=== PATIENT | male | born 1950 | race Caucasian/White ===

== ENCOUNTER 2017-05-31 11:00 | Outpatient (RCR) | payer MEDICARE, SELFPAY | END 2017-06-05 15:40 | disposition home or self-care (01) | LOC: PT 11:00 | PROVIDERS: Visit Provider Family Medicine | DX: M25.519 Pain in unspecified shoulder (principal) | CPT/HCPCS: 97033; 97035; 97110; 97140; 97163 ==

== ENCOUNTER → 2017-11-15 15:43 | Outpatient (CLI) | payer MEDICARE, SELFPAY ==
--- NOTE | 2017-11-15 15:49 | CT_ITS ---
CT abdomen pelvis wo con INDICATION: Right flank pains. St pain. Hematuria. Low back acute In the flank year ITS.REASON: LOW BACK PAIN,HEMATURIA ORDERING PHYSICIAN: Stephanie Antoine PATIENT AGE: 67 years COMPARISON: None available PROCEDURE: Oral Contrast: None IV Contrast: TECHNIQUE: Axial images are obtained without contrast. Sagittal and coronal reformatted images are reviewed as well. All CT scans at the facility use one or more dose reduction, viz: automated exposure control; ma/kV adjustment per patient size (including targeted exams where dose is matched to indication; i.e. head); or iterative reconstruction technique. FINDINGS : Lung base. No acute findings. No active disease. Calcified granulomata medial right lung base. Abdomen/pelvis the lack of oral and IV contrast is somewhat decreased sensitivity. Liver. Multiple low-density areas of liver. These all measure near fluid density and thus most likely scattered benign cysts. Largest measuring 2 cm diameter. Others measure less.. Any old outside studies would be helpful to confirm stability. If none available consider ultrasound or a CT with contrast follow-ups, liver protocol. No intrahepatic biliary ductal dilatation Spleen not enlarged appears relatively small in size. Question some vague lower density towards its lateral aspect of this is equivocal. Area of splenosis just medial to the spleen however stomach axial image 28. Pancreas unremarkable on this This slightly limited noncontrast study through the pancreas... Adrenals unremarkable. Gallbladder. No calcified stones no biliary ductal dilatation TRACT LEFT left kidney. No hydronephrosis. 4.4 mm nonobstructive calculus at the periphery of the upper left kidney. There is also a likely peripelvic cyst upper pole left kidney measuring 18 mm, sagittal slice 72. Left ureter unremarkable RIGHT KIDNEY no hydronephrosis. No calculi. Stable 1 cm cyst lateral aspect mid right kidney. Right ureter unremarkable. Pelvis. Bladder unremarkable. No calculi. Streak artifact from the metallic right hip prosthesis diminishes resolution at pelvis and lower pelvis. GI TRACT. Generous stool throughout the rectosigmoid and entire colon. Suggesting mild constipation. Diverticuli throughout the sigmoid and left colon but no diverticulitis evident. The appendix is identified and appears normal at the left lower quadrant. Small bowel loops contain generous fluid at and gas with moderate air-fluid levels. Findings are suspect for a mild ileus or early enteritis. On further investigation I would note that there is a dilated 3.5 cm fluid in small bowel left upper quadrant cannot totally exclude early obstruction with this larger bowel loop. If symptoms progress consider follow-up for such Stomach. Generous wall thickness may merely reflect lack of distention The patient has a aortobiiliac endograft of some form. Nonradiopaque. 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 The MANDY calcified leads to this region at lower aorta. No free fluid. No free air . Osseous. Multilevel degenerative changes spine with generous facet arthropathy lower L-spine. Levoscoliosis upper L-spine dextrocurvature lower L-spine. No osseous lesions. Righ total t hip replacement IMPRESSION 1. Regarding Right sided pain.:. Appendix is normal. No urinary tract obstruction. 2.Increase stool throughout the colon reflecting mild to moderate constipation. Most prominent stool is seen at the right in transverse colon. 3. Generous to slightly dilated small bowel loops, with moderate air-fluid levels. Increased gas & fluid small bowel Mildly dilated loops most evident the left upp
[2017-11-15 16:34] LABS: Basophils % 0.3 % (0.1-2.0); Eosinophils # 0.2 K/mm3 (0.0-0.4); Eosinophils % 1.8 % (0.1-12.0); Hematocrit 37.5 % (42.0-52.0); Hemoglobin 12.2 g/dL (14.1-18.0); Lymphocytes # 1.3 K/mm3 (0.7-4.5); Lymphocytes % 14.7 K/mm3 (10-50); Mean Corpuscular HGB Conc 32.6 g/dL (31.8-35.4); Mean Corpuscular Hemoglobin 28.8 pg (27.0-31.2); Mean Corpuscular Volume 88.4 fl (80-94); Mean Platelet Volume 7.7 fl (7.4-10.4); Monocytes # 0.8 K/mm3 (0.1-1.0); Monocytes % 8.8 % (1.7-9.3); Neutrophils # 6.4 K/mm3 (1.8-7.8); Neutrophils % 74.4 % (37.0-80.0); Platelet Count 220 K/mm3 (142-424); Red Blood Count 4.24 M/mm3 (4.60-6.20); Red Cell Distribution Width 14.8 % (11.5-17.5); White Blood Count 8.5 K/mm3 (4.8-10.8)
[2017-11-15 17:19] LABS: Alanine Aminotransferase 23 U/L (12-78); Albumin Level 3.3 gm/dL (3.4-5.0); Alkaline Phosphatase 85 U/L (46-116); Anion Gap 12.4 mEq/L (5-15); Aspartate Amino Transferase 15 U/L (15-37); Bilirubin,Total 0.6 mg/dL (0.2-1.0); Blood Urea Nitrogen 23 mg/dL (7-18); Calcium 8.9 mg/dL (8.5-10.1); Carbon Dioxide 26 mmol/L (21.0-32.0); Chloride 105 mmol/L (98-107); Creatinine,Serum 1.15 mg/dL (0.70-1.30); Estimated Glomerular Filt Rate 63 ml/min (>60); GFR (African American) 76 ML/MIN (>60); Globulin 3.2 gm/dl (1.3-3.2); Glucose 96 mg/dL (74-106); Potassium 4.4 mmoL/L (3.5-5.1); Sodium 139 mmol/L (136-145); Total Protein,Serum 6.5 gm/dL (6.4-8.2)
== END ==
PROVIDERS: PCP Internal Medicine Adolescent Medicine; Visit Provider Nurse Practitioner Family
DX: M54.5 Low back pain (principal); R31.29 Other microscopic hematuria
CPT/HCPCS: 36415; 74176; 80053; 85025

== ENCOUNTER → 2017-11-24 07:36 | Outpatient (CLI) | payer MEDICARE, SELFPAY ==
--- NOTE | 2017-11-24 07:39 | US_ITS ---
US liver HISTORY: Follow-up liver cysts, right-sided pain ITS.REASON: LIVER CYST ORDERING PHYSICIAN: Stephanie Antoine PATIENT AGE: 67 years COMPARISON: None FINDINGS: PANCREAS:Not imaged LIVER:Multiple cystic lesions are present within the liver including a 1 cm cyst in the left hepatic lobe superiorly and 1.6 cm cyst in the right hepatic lobe superiorly as well as a 1.6 cm and 1.3 cyst in the periportal region. No biliary dilatation evident. There is appropriate portal and hepatic blood flow. No biliary dilatation. RIGHT KIDNEY:3 cm lower pole renal cyst. No hydronephrosis Gallbladder is not imaged. IMPRESSION: Multiple hepatic cysts. No suspicious solid lesions evident of the liver. 3 cm right renal cyst
== END ==
PROVIDERS: PCP Internal Medicine Adolescent Medicine; Visit Provider Nurse Practitioner Family
DX: K76.89 Other specified diseases of liver (principal)
CPT/HCPCS: 76705

== ENCOUNTER 2019-04-15 14:20 | Outpatient (RCR) | payer MEDICARE, SELFPAY | END 2019-04-23 09:26 | disposition home or self-care (01) | LOC: PT.CARL 14:20 | PROVIDERS: PCP Internal Medicine Adolescent Medicine; Visit Provider Nurse Practitioner Family | DX: M25.511 Pain in right shoulder (principal) | CPT/HCPCS: 97014; 97033; 97110; 97163; G0283 ==

== ENCOUNTER 2019-08-30 16:44 | Emergency (ER) | payer MEDICARE, SELFPAY ==
[2019-08-30] VITALS (11 sets, daily range): BP systolic 104–161; BP diastolic 62–80; PULSE 55–72; RESP 16–30; TEMP 36.5–36.7; O2SAT 85–100; BMI 29.1
--- NOTE | 2019-08-30 16:24 | ECG_ITS ---
APPROVED REPORT Exam: Resting ECG HR:61 bpm ECG Measurements Heart Rate 61 AXES DE 242 P 68 QRSd 164 QRS -74 QT 530 T -1 QTc 533 <Conclusion> Sinus rhythm with 1st degree AV block with premature ventricular complexes Possible Left atrial enlargement Right bundle branch block Left anterior fascicular block Bifascicular block Left ventricular hypertrophy Abnormal ECG Electronically signed by : Luis Garcia, 08/31/2019 22:26:43
--- NOTE | 2019-08-30 16:44 | XR_ITS ---
PROCEDURE: XR CHEST PORTABLE CLINICAL HISTORY: intubation Shortness of air, respiratory failure COMPARISON: CXR CHEST(2 VIEWS-NOT PORTABLE) from 12/28/2012 FINDINGS: 1647 hours. Endotracheal tube tip is in good position well above the isabella at the T4 level nearly 6 cm above the isabella There is mild cardiomegaly. There has been a prior median sternotomy with mitral valve replacement . The lungs are clear No acute bony abnormalities. IMPRESSION: Endotracheal tube in good position Dictated by: Júnior Blanchard MD 08/30/2019 17:39 Electronically signed by Júnior Blanchard MD in [place] 08/30/2019 17:39
[2019-08-30 16:55] LABS: Basophils % 0.3 % (0.1-2.0); Eosinophils # 0.2 K/mm3 (0.0-0.4); Eosinophils % 1.7 % (0.1-12.0); Hematocrit 35.2 % (42.0-52.0); Hemoglobin 11.4 g/dL (14.1-18.0); Lymphocytes # 1.6 K/mm3 (0.7-4.5); Lymphocytes % 13.3 % (10-50); Mean Corpuscular HGB Conc 32.5 g/dL (31.8-35.4); Mean Corpuscular Hemoglobin 29.4 pg (27.0-31.2); Mean Corpuscular Volume 90.6 fl (80-94); Mean Platelet Volume 7.6 fl (7.4-10.4); Monocytes % 8.2 % (1.7-9.3); Neutrophils % 76.5 % (37.0-80.0); Platelet Count 254 K/mm3 (142-424); Red Blood Count 3.88 M/mm3 (4.60-6.20); Red Cell Distribution Width 13.9 % (11.5-17.5); White Blood Count 11.8 K/mm3 (4.8-10.8)
[2019-08-30 17:02] LABS: Alanine Aminotransferase 14 U/L (12-78); Albumin Level 3.9 g/dl (3.5-5.0); Albumin/Globulin Ratio 1.4 (1.1-1.8); Alkaline Phosphatase 83 U/L (38-126); Anion Gap 7.8 mEq/L (5-15); Aspartate Amino Transferase 24 U/L (17-59); Bilirubin,Total 0.5 mg/dl (0.2-1.3); Blood Urea Nitrogen 18 mg/dl (9-20); Calcium 9.3 mg/dl (8.4-10.2); Carbon Dioxide 23 mmol/L (22.0-30.0); Chloride 105 mmol/L (98-107); Creatinine Clearance Estimated 93 mL/min (50-200); Estimated Glomerular Filt Rate 111 ml/min (>60); GFR (African American) 135 ML/MIN (>60); Globulin 2.7 g/dL (1.3-3.2); Glucose 120 mg/dl (74-100); Potassium 3.8 mmoL/L (3.5-5.1); Sodium 132 mmol/L (136-145); Total Protein,Serum 6.6 g/dl (6.3-8.2)
--- NOTE | 2019-08-30 17:03 | CT_ITS ---
PROCEDURE: CT ABDOMEN PELVIS WO CON CLINICAL INDICATION: shortness of breath History of aneurysm, evaluate for aneurysm, pain COMPARISON: [facility] CT abdomen pelvis wo con from 11/15/2017 TECHNIQUE: Axial images obtained with sagittal and coronal reformats. All CT scans at the facility use one or more dose reduction, viz: automated exposure control, ma/kV adjustment per patient size (including targeted exams where dose is matched to indication, i.e. head), or iterative reconstruction technique. FINDINGS: Artifact is present from the patient's arm. Scattered hypodensities are present in the liver and may be due to cysts. There is a moderate amount of retained colonic feces. There are bilateral renal cyst. There is a 5 mm nonobstructing stone in the upper pole of the left kidney. The spleen and pancreas have an unremarkable appearance.. There is a solid-appearing 2.7 cm nodule posterior to the fundus of the stomach. This appears separate from the left adrenal gland. The right adrenal gland has an unremarkable appearance. No intestinal obstruction or free air. There is colonic diverticulosis but no evidence of diverticulitis. No evidence of appendicitis. Prior aorto bi-iliac stent graft. There are degenerative changes of the lumbar spine SI joints and left hip. There has been a prior right jonatan arthroplasty of the hip. Multiple unopacified bowel loops in the abdomen or pelvis which could obscure or mimic pathology. If symptoms persist, consider repeat exam with IV and oral contrast.. Soliz catheter is present. IMPRESSION: 1. No definite acute finding. 2. Diverticulosis with constipation. 3. Left renal nephrolithiasis with bilateral renal cysts and hepatic cysts 4. Multiple unopacified bowel loops in the abdomen or pelvis which could obscure or mimic pathology. If symptoms persist, consider repeat exam with IV and oral contrast. Dictated by: Júnior Blanchard MD 08/30/2019 21:09 Electronically signed by Júnior Blanchard MD in [facility] 08/30/2019 21:09
--- NOTE | 2019-08-30 17:03 | CT_ITS ---
PROCEDURE: CT CHEST WO CON CLINICAL INDICATION: shortness of breath Shortness of breath, history of aneurysm, heart disease COMPARISON: CT ABDOMEN PELVIS WO CON from 08/30/2019 TECHNIQUE: Axial images obtained with sagittal and coronal reformats. All CT scans at the facility use one or more dose reduction, viz: automated exposure control, ma/kV adjustment per patient size (including targeted exams where dose is matched to indication, i.e. head), or iterative reconstruction technique. FINDINGS: There is an endotracheal tube present. The tip is in good position well above the isabella 5 cm above the isabella. There has been a prior CABG. The heart size is normal. There has been prior aortic valve repair and there are coronary artery stents and or calcifications. There has been prior mitral valve replacement as well. There are moderate atelectatic changes in both lower lobes posteriorly. IMPRESSION: 1. Endotracheal tube in good position. 2. Prior aortic valve and mitral valve replacement. 3. Bilateral lower lobe atelectatic change Dictated by: Júnior Blanchard MD 08/30/2019 20:57 Electronically signed by Júnior Blanchard MD in [facility] 08/30/2019 20:57
--- NOTE | 2019-08-30 17:06 | PC.NURSE ---
Patient arrived via ems at 1618. Patient visibly having difficultly breathing. Unable to answer questions related to shortness of breath. Is alert. propofol 50mg give iv push Drip started at 3ml/hr. 75mg of Succ given at 1636, 25mg of Succ given at 1637. Patient intubated at 1639 #8 ET tube 24 at the lip.
--- NOTE | 2019-08-30 17:10 | PC.NURSE ---
Propofol increased to 36ml/hr at 1700
--- NOTE | 2019-08-30 17:11 | CT_ITS ---
PROCEDURE: CT HEAD/BRAIN WO CON CLINICAL INDICATION: ams Altered mental status, altered level of consciousness, confusion, disorientation COMPARISON: [facility] CT HEAD W/O CONTRAST from 11/27/2016 TECHNIQUE: Axial images obtained. All CT scans at the facility use one or more dose reduction, viz: automated exposure control, ma/kV adjustment per patient size (including targeted exams where dose is matched to indication, i.e. head), or iterative reconstruction technique. FINDINGS: No midline shift, mass effect, intracranial hemorrhage, hydrocephalus, or extra-axial fluid collection is evident. There is generalized atrophy with hypoattenuation of the periventricular white matter consistent with microangiopathic changes. The calvarium has an unremarkable appearance. No mastoid effusion. There is mucosal thickening of the ethmoid sinuses IMPRESSION: No acute intracranial finding Dictated by: Júnior Blanchard MD 08/30/2019 17:45 Electronically signed by Júnior Blanchard MD in [facility] 08/30/2019 17:45
[2019-08-30 17:16] LABS: ABG Base Excess -6.8 mmol/L (-2.4-2.3); ABG HCO3 20.4 mmhg (22.0-26.0); ABG Oxygen Saturation 99 % (90-100); ABG PCO2 47.7 mmhg (35.0-45.0); ABG PH 7.25 mmol/L (7.35-7.45); ABG PO2 494.2 mmhg (80-100); ABG TCO2 21.9 mmhg (23-27); Allen's Test ACCEPTABLE; Oxygen 100% %; PEEP 5; Tidal Volume 450; Vent Rate 18
[2019-08-30 17:17] LABS: Microscopic, Urine URINE MICROSCOPIC (MICROSCOPIC)
[2019-08-30 17:17] LABS: Source Right Radial
--- NOTE | 2019-08-30 17:18 | PC.NURSE ---
Spoke with Jose Enrique from pharmacy about dosing for versed drip. repeated back how to mix and starting rate. Will mix 25mML and start at 1.9ml/hr if needed
[2019-08-30 17:23] LABS: Appearance,Urine CLEAR (Clear); Bilirubin,Urine Negative (Negative); Blood, Urine Negative (Negative); Color,Urine YELLOW (Yellow); Glucose,Urine (UA) Negative (Negative); Ketones,Urine TRACE (Negative); Leukocyte Esterase,Urine Negative (Negative); Nitrate,Urine Negative (Negative); Protein,Urine Negative (Negative); Urobilinogen,Urine 0.2 EU/dl (0.2)
--- NOTE | 2019-08-30 17:28 | PC.NURSE ---
PT GOING TO [facility]. Felipa MELO RN ACCOMPANYING PT
--- NOTE | 2019-08-30 18:33 | HMH.EDGENADL ---
ED Disposition Clinical Impression: Respiratory failure, Bilateral pneumonia Disposition: er Short-Term Hosp Condition on Discharge: Serious Referrals: Ilda Larry [Primary Care Provider] - Forms: Transfer Record - ED - Critical Care Critical Care Time: Yes Attestation: On 08/30/19, the high probability of a clinically significant, sudden or life threatening deterioration of the following system(s) required my full and direct attention, intervention and personal management. The time I documented below is in addition to time spent performing reported procedures but includes the following listed in this critical care notation. Total Critical Care Time: 55 Vital system(s) involved:: Circulatory Failure, Metabolic Failure, Respiratory Failure, Renal Failure, Shock (Septic) My critical care processes included: Assessment & monitoring of V/S, Initial and Re-exams, Data Review/Interpretation, Coordinating Care, Medication Orders and management, Documentation Medical Decision Making - Medical Records Medical records reviewed: Yes: I reviewed the patient's medical records. - Antonio Inquiry Pt receiving controlled substance: No Vital Signs: 08/30/19 16:43 08/30/19 17:00 08/30/19 17:13 Temperature 97.7 F Temperature Source Oral Pulse Rate [Radial] 67 67 Respiratory Rate 30 H Blood Pressure [Right Arm] 136/79 129/70 Blood Pressure Mean [Right Arm] 98 89 Blood Pressure Source [Right Arm] Automatic Cuff Automatic Cuff Blood Pressure Position [Right Arm] Supine Supine 02 Sat by Pulse Oximetry 100 100 100 Oxygen Delivery Method Mechanical Ventilation Mechanical Ventilation 08/30/19 17:30 08/30/19 18:00 08/30/19 18:30 Temperature Temperature Source Pulse Rate [Radial] 63 57 L 61 Respiratory Rate 16 16 18 Blood Pressure [Right Arm] 104/70 L 104/69 L 109/70 L Blood Pressure Mean [Right Arm] 81 80 83 Blood Pressure Source [Right Arm] Automatic Cuff Automatic Cuff Automatic Cuff Blood Pressure Position [Right Arm] Supine Supine Supine 02 Sat by Pulse Oximetry 100 100 99 Oxygen Delivery Method Mechanical Ventilation Mechanical Ventilation Mechanical Ventilation 08/30/19 19:05 Temperature Temperature Source Pulse Rate [Radial] 63 Respiratory Rate 18 Blood Pressure [Right Arm] 109/74 L Blood Pressure Mean [Right Arm] 85 Blood Pressure Source [Right Arm] Automatic Cuff Blood Pressure Position [Right Arm] Sitting 02 Sat by Pulse Oximetry 98 Oxygen Delivery Method - Lab Data Lab results reviewed: Yes: I reviewed the patient's lab results. Lab Results 08/30/19 16:44: WBC 11.8 H, RBC 3.88 L, Hgb 11.4 L, Hct 35.2 L, MCV 90.6, MCH 29.4, MCHC 32.5, RDW 13.9, Plt Count 254, MPV 7.6, Neut % (Auto) 76.5, Lymph % (Auto) 13.3, Wetzel % (Auto) 8.2, Eos % (Auto) 1.7, Baso % (Auto) 0.3, Neut # (Auto) 9.0 H, Lymph # (Auto) 1.6, Wetzel # (Auto) 1.0, Eos # (Auto) 0.2, Baso # (Auto) 0.0 08/30/19 16:44: Sodium 132 L, Potassium 3.8, Chloride 105, Carbon Dioxide 23, Anion Gap 7.8, BUN 18, Creatinine 0.70, Estimated Creat Clear 93, Estimated GFR 111, Est GFR ( Amer) 135, Glucose 120 H, Calcium 9.3, Total Bilirubin 0.5, AST 24, ALT 14, Alkaline Phosphatase 83, Total Protein 6.6, Albumin 3.9, Globulin 2.7, Albumin/Globulin Ratio 1.4 08/30/19 16:44: Troponin I < 0.01 08/30/19 16:58: Urine Color Yellow, Urine Appearance Clear, Urine pH 6.0, Ur Specific [place] 1.020, Urine Protein Negative, Urine Glucose (UA) Negative, Urine Ketones Trace, Urine Blood Negative, Urine Nitrate Negative, Urine Bilirubin Negative, Urine Urobilinogen 0.2, Ur Leukocyte Esterase Negative, Urine WBC 3-5 08/30/19 17:13: Specimen Source Right radial, O2 % 100%, ABG pH 7.25 L, ABG pCO2 47.7 H, ABG pO2 494.2 H, ABG HCO3 20.4 L, ABG Total CO2 21.9 L, ABG O2 Saturation 99, ABG Base Excess -6.8 L, Júnior Test Acceptable, Vent Rate 18, Tidal Volume 450, PEEP 5 08/30/19 19:00: Lactate < 0.5 L Result diagrams: 08/30/19 16:44 08/30/19 16:44 Orders
--- NOTE | 2019-08-30 18:37 | PC.NURSE ---
CALLING [facility] PER FAMILY REQUEST , THEY DO HAVE AN ICU BED , DR SUSAN HILL WILL BE CALLING BACK
[2019-08-30 18:54] LABS: Troponin I < 0.01 ng/ml (0.00-0.034)
[2019-08-30 19:10] LABS: Lactic Acid < 0.5 mmol/L (0.7-2.1)
--- NOTE | 2019-08-30 20:43 | PC.NURSE ---
[employer] at bedside and report given to flight crew by lloyd wayne rn.
[2019-09-13 09:46] LABS: POC Glucose,Bedside 128 (70-110)
== END 2019-08-30 21:22 | disposition short-term general hospital (02) ==
PROVIDERS: Emergency Provider Family Medicine; PCP Nurse Practitioner Family
DX: J96.90 Respiratory failure, unspecified, unspecified whether with hypoxia or hypercapnia (principal); J18.9 Pneumonia, unspecified organism
CPT/HCPCS: 31500; 36415; 70450; 71045; 71250; 74176; 80053; 81001; 82803; 82962; 83605; 84484; 85025; 87040; 87070; 87205; 93005; 96365; 96367; 96375; 99285; J0330; J1956; J2704

== ENCOUNTER → 2020-01-13 13:56 | Outpatient (POV) | payer MEDICARE, SELFPAY | PROVIDERS: Visit Provider Nurse Practitioner Family | DX: Z00.00 Encounter for general adult medical examination without abnormal findings (principal) ==

== ENCOUNTER → 2020-03-23 10:15 | Outpatient (CLI) | payer MEDICARE, SELFPAY ==
[2020-03-23 10:26] LABS: Microscopic, Urine URINE MICROSCOPIC (MICROSCOPIC)
--- NOTE | 2020-03-23 10:44 | ECG_ITS ---
APPROVED REPORT Exam: Resting ECG HR:68 bpm ECG Measurements Heart Rate 68 AXES MD 248 P 77 QRSd 160 QRS -79 QT 470 T 43 QTc 499 Conclusion Sinus rhythm with 1st degree AV block Possible Left atrial enlargement Right bundle branch block Left anterior fascicular block Bifascicular block Left ventricular hypertrophy Cannot rule out Septal infarct, age undetermined Abnormal ECG Electronically signed by : Kerwin Obregon, 03/24/2020 07:31:50
--- NOTE | 2020-03-23 10:45 | XR_ITS ---
PROCEDURE: XR CHEST 2V CLINICAL HISTORY: Former smoker, heart disease, hypertension COMPARISON: [facility] CXR CHEST(2 VIEWS-NOT PORTABLE) from 12/28/2012 CR XR CHEST PORTABLE from 08/30/2019 FINDINGS: There has been a prior median sternotomy with mitral valve replacement. There is some tortuosity of the descending thoracic aorta The lungs are clear without infiltrates, suspicious nodules, or pleural effusions. No acute bony abnormalities. IMPRESSION: No acute findings. Dictated by: Júnior Blanchard MD 03/23/2020 12:10 Júnior Blanchard MD in [place] 03/23/2020 12:10
[2020-03-23 10:46] LABS: Appearance,Urine CLEAR (Clear); Bilirubin,Urine Negative (Negative); Blood, Urine Negative (Negative); Color,Urine YELLOW (Yellow); Glucose,Urine (UA) Negative (Negative); Ketones,Urine Negative (Negative); Leukocyte Esterase,Urine Negative (Negative); Nitrate,Urine Negative (Negative); Protein,Urine Negative (Negative); Specific Gravity, Urine <= 1.005 (1.005-1.030); Urobilinogen,Urine 0.2 EU/dl (0.2)
[2020-03-23 10:47] LABS: Basophils % 0.4 % (0.1-2.0); Eosinophils # 0.1 K/mm3 (0.0-0.4); Eosinophils % 1.6 % (0.1-12.0); Hematocrit 42.4 % (42.0-52.0); Hemoglobin 13.7 g/dL (14.1-18.0); Lymphocytes # 1.7 K/mm3 (0.7-4.5); Lymphocytes % 19.6 % (10-50); Mean Corpuscular HGB Conc 32.3 g/dL (31.8-35.4); Mean Corpuscular Volume 89.8 fl (80-94); Mean Platelet Volume 7.7 fl (7.4-10.4); Monocytes # 0.9 K/mm3 (0.1-1.0); Neutrophils # 5.7 K/mm3 (1.8-7.8); Neutrophils % 67.5 % (37.0-80.0); Platelet Count 225 K/mm3 (142-424); Red Blood Count 4.72 M/mm3 (4.60-6.20); Red Cell Distribution Width 15.4 % (11.5-17.5); White Blood Count 8.5 K/mm3 (4.8-10.8)
--- NOTE | 2020-03-23 10:50 | PC.NURSE ---
PT EKG TAKEN TO ER DOC, SIGNED OFF ON IT.
[2020-03-23 11:30] LABS: Activated Partial Thrombo Time 25.2 seconds (23.6-34.0); Prothrombin Time 11.1 seconds (9.4-11.8)
[2020-03-23 11:36] LABS: Squamous Epithelial Cell,Urine Occasional #/hpf (0-5)
[2020-03-23 12:01] LABS: Hemoglobin A1C 5.8 % (4.0-6.0)
[2020-03-23 12:28] LABS: Chloride 102 mmol/L (98-107); Potassium 4.3 mmoL/L (3.5-5.1); Sodium 136 mmol/L (136-145)
[2020-03-23 12:31] LABS: Alanine Aminotransferase 16 U/L (12-78); Albumin Level 3.8 g/dl (3.5-5.0); Albumin/Globulin Ratio 1.4 (1.1-1.8); Alkaline Phosphatase 88 U/L (38-126); Anion Gap 10.3 mEq/L (5-15); Aspartate Amino Transferase 25 U/L (17-59); Bilirubin,Total 0.5 mg/dl (0.2-1.3); Blood Urea Nitrogen 11 mg/dl (9-20); Calcium 9.2 mg/dl (8.4-10.2); Carbon Dioxide 28 mmol/L (22.0-30.0); Estimated Glomerular Filt Rate 95 ml/min (>60); GFR (African American) 115 ML/MIN (>60); Globulin 2.8 g/dL (1.3-3.2); Glucose 87 mg/dl (74-100); Total Protein,Serum 6.6 g/dl (6.3-8.2)
[2020-03-24 12:34] LABS: Prealbumin 16 mg/dL (9-32)
== END ==
PROVIDERS: PCP Nurse Practitioner Family; Visit Provider Nurse Practitioner Family
DX: Z01.818 Encounter for other preprocedural examination (principal); Z51.81 Encounter for therapeutic drug level monitoring; Z79.899 Other long term (current) drug therapy
CPT/HCPCS: 36415; 71046; 80053; 81001; 83036; 84134; 85025; 85610; 85730; 93005

== ENCOUNTER → 2020-03-30 08:35 | Outpatient (POV) | payer MEDICARE, SELFPAY | PROVIDERS: Visit Provider Nurse Practitioner Family | DX: Z00.00 Encounter for general adult medical examination without abnormal findings (principal) ==

== ENCOUNTER 2020-07-13 07:00 | Outpatient (RCR) | payer MEDICARE, SELFPAY | END 2020-07-28 16:30 | disposition home or self-care (01) | LOC: PT.CARL 07:00 | PROVIDERS: PCP Nurse Practitioner Family; Visit Provider Orthopaedic Surgery | DX: M17.12 Unilateral primary osteoarthritis, left knee (principal); Z96.652 Presence of left artificial knee joint | CPT/HCPCS: 97010; 97014; 97110; 97140; 97163; G0283 ==

== ENCOUNTER 2023-06-02 07:00 | Outpatient (RCR) | payer MEDICARE, SELFPAY | END 2023-07-04 11:14 | disposition home or self-care (01) | LOC: PT 07:00 | PROVIDERS: PCP Nurse Practitioner Family; Visit Provider Nurse Practitioner Family | DX: M25.511 Pain in right shoulder (principal) | CPT/HCPCS: 97010; 97014; 97035; 97110; 97163; 97530; G0283 ==